=== PATIENT | female | born 1985 | race Hispanic/Latino ===

== ENCOUNTER 2017-08-18 13:44 | Emergency (ER) | payer MEDICAID, OTHER, SELFPAY ==
[2017-08-18 14:17] LABS: #Basophils 0.1 thou/uL (0.0-0.2); #Eosinphils 0.1 thou/uL (0.0-0.7); #Lymphocytes 3.5 thou/uL (1.20-3.40); #Monocytes 0.7 thou/uL (0.11-0.59); #Neutrophils 6.7 thou/uL (1.40-6.50); %Basophils 0.8 % (0.0-1.0); %Eosinophils 0.8 % (0.0-10.0); %Lymphocytes 31.4 % (21.0-51.0); %Monocytes 5.9 % (0.0-10.0); Hematocrit 43.3 % (36.0-47.0); Mean Platelet Volume 8.4 fL (7.4-10.4); Red Blood Cell (RBC) Count 4.73 mill/uL (4.20-5.40)
== END 2017-08-18 15:30 | disposition home or self-care (01) ==
LOC: SCSER 13:44
DX: O20.0 Threatened abortion (principal); Z3A.13 13 weeks gestation of pregnancy
CPT/HCPCS: 84702; 85025; 86900; 86901; 99284

== ENCOUNTER 2018-11-27 08:49 | Outpatient (CLI) | payer OTHER ==
--- NOTE | 2018-11-27 11:46 | ULT ---
OB ULTRASOUND: HISTORY: anatomy. FINDINGS: A single live intrauterine gestation is seen corresponding to an estimated gestational age of 21 week s 1 day and LM at 04/08/2019. The estimated weight measures 405 gm or 14 ounces. measurements are as follows: BPD 4.83 cm, 20 weeks 5 days HC 18.43 cm, 20 weeks 6 days AC 16.61 cm, 21 weeks 5 days FL 3.43 cm, 20 weeks 6 days heart rate measures 149 b.p.m. Placenta is anteriorly located without evidence of placenta pre via. Amniotic fluid is within normal limits. A 3-vessel cord, cord insertion, kidneys, bladder, stomach, 4-chamber heart, lateral ventricles , cerebellum, spine, lips/nose, upper and lower extremities are visualized. No definite abnorm alities are seen. IMPRESSION: Single live intrauterine of 21 weeks 1 day estimated gestational age and estimated date of delivery at 04/08/2019. POS: ASHLEY
== END 2018-11-27 08:50 | disposition home or self-care (01) ==
LOC: BICULT 08:49
PROVIDERS: ATTEND Family Medicine
DX: O09.892 Supervision of other high risk pregnancies, second trimester (principal); Z3A.21 21 weeks gestation of pregnancy
CPT/HCPCS: 76805

== ENCOUNTER 2019-02-03 19:59 | Day surgery (SDC) | payer OTHER ==
[2019-02-03 20:39] VITALS: BMI 32.5
--- NOTE | 2019-02-03 21:35 | PDOC.FPROB ---
FMR OB H&P: HPI - History of Present Illness Chief Complaint: abdominal tightening Indentification: 33 y/o @ 30.3 WGA History of Present Illness: Presents with abdominal "tightening" that started around noon yesterday. It mostly only happens when she is up walking around and her abdomen will stay tight until she is able to lie down. Reports it is a 7/10 with pain, but describes it more as an uncomfortable feeling than painful. She endorses good movement. Denies LOF, vaginal bleeding, vaginal d/c, fevers, dysuria, urinary frequency. Primary Care Physician: Dr. 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: Denies any h/o abnormal pap smears or STI's - Surgical History Sx History: 1 section - Social History Social History: Denies EtOH, drug, or tobacco use - Family History Family History: Denies FMR OB H&P: Medications - Current Home Medications: Medication Instructions Recorded Confirmed Type 21/Iron Fu/Folic Acid 1 tablet PO DAILY 02/03/19 02/03/19 History [ Complete Caplet] Allergies/Adverse Reactions: Allergies Allergy/AdvReac Type Severity Reaction Status Date / Time No Known Allergies Allergy Verified 02/03/19 20:40 FMR OB H&P: ROS - Review of Systems General: denies: fever/chills, recent trauma Eyes: denies: eye pain, vision changes, double vision ENT: denies: nasal congestion, rhinorrhea, sore throat Cardiovascular: denies: chest pain, palpitation, edema Respiratory: denies: cough, shortness of breath Gastrointestinal: reports: abdominal pain. denies: nausea, vomiting, constipation Genitourinary (Female): denies: dysuria, hematuria, polyuria, vaginal discharge , vaginal pain, vaginal bleeding Musculoskeletal: denies: pain, tenderness Neurologic: denies: numbness, weakness Integumentary: denies: itching, rash Endocrine: denies: cold intolerance, heat intolerance Hematologic/Lymphatic: denies: prolonged or excessive bleeding, enlarged lymph nodes Psychological: denies: depression, anxiety FMR OB H&P: Vital Signs - Maternal Vital signs: Temp 98.7, HR 79, BP 101/62, 97% on RA - Heart Tones Baseline: 130 Variability: moderate Acceleration: present Deceleration: absent Category: category 1 [place] contractions every: None FMR OB H&P: Physical Exam - Physical Exam General: NAD, awake, alert and oriented HEENT: EOMI, MMM, conjunctiva clear, no scleral icterus, grossly normal vision, grossly normal hearing Neck: supple, no LAD Heart: RRR, normal S1/S2, no murmurs/rubs/gallops, pulses present, no edema General: CTAB, no respiratory distress, good air movement, no rales/rhonchi, no wheezing Abdomen: soft, gravid, non-tender, bowel sound present Neurological: cranial nerves II through XII intact, no focal deficit Skin: good tugor, capillary refill <2 seconds Lymphatic: no unusual bruising or bleeding, no purpura Psychiatric: intact recent and remote memory, good judgement and insight, normal mood and affect FMR OB H&P: A/P - Problem List (1) contractions Current Visit: Yes Status: Acute Code(s): O47.9 - FALSE LABOR, UNSPECIFIED Assessment and Plan: Will rule out labor -FFN -Cervical length -Cervical check -Monitor heart tones Disposition: Will monitor on L&D until results come back Discussion: Date/Time: 02/03/192132 This H&P was discussed with Dr. Ariza who agrees with the above documentation and plan. Signature: Kelly Jones MD, PGY-2
--- NOTE | 2019-02-03 21:48 | PDOC.EVN ---
Event Note - Event Note Event Note: Faculty H&P Time: [address] warner Here with CC of abd tightening, better with rst HPI: 33 yo H at 30 weeks 3 days, EDC 6/5 here for abd tigtening. No GI or sxs, no recent trauma, no sex in >24 hrs. No VB, no lof. Goofd FMN. She describes the tightening as upper abd, no RUQ pain, no radiation, it is uncomfortable but nonsevere. No fevers at home. Review of Systems: complete ROS completed and as per HPI Past med: none OB HX: SAB 2, CS with last delivery at second stage Allergies: none Surg: CS x 1 MONITORS: NST appropriate for age/reactive; no CTX on toco PHYSICAL: 101/62 79 97% RA NAD And soft NT no evidence ROM or VB clinically Assessment and plan: Patient seen at bedside by me. Stable, NAD I have discussed with her the following tests which we will obtain: FFN TVUS Cervical length I do not suspect true PTL at this time Prob B-H contractions at this time.
[2019-02-03 22:44] LABS: FFN Internal QC Analyzer PASS (PASS); FFN Internal QC Cassette PASS (PASS); Fetal Fibronectin Negative (Negative)
--- NOTE | 2019-02-03 22:59 | PDOC.EVN ---
Event Note - Event Note Event Note: FFN negative, Cervix 0/0/-3 - ultrasound canceled as these two tests were very reassuring for ruling out pre-term labor Will d/c home with f/u with Dr. Fine Discussed labor precautions including regular/painful ctx, LOF, vaginal bleeding , decreased movement
--- NOTE | 2019-02-03 23:00 | PDOC.EVN ---
Event Note - Event Note Event Note: FFN negative. CX sono pending as tech with other patiets. As her exam was cervix closed, with FFN negative, ok to release to home without cx sono as index of suspicion for PTL very low.
== END 2019-02-03 23:05 | disposition home or self-care (01) ==
LOC: SDC 19:59 → EDSTATUS 20:00 → L&D/OP 20:08
PROVIDERS: ATTEND Family Medicine
DX: O47.03 False labor before 37 completed weeks of gestation, third trimester (principal); O34.219 Maternal care for unspecified type scar from previous cesarean delivery; Z3A.30 30 weeks gestation of pregnancy
CPT/HCPCS: 82731; 99283

== ENCOUNTER 2019-04-17 05:51 | Inpatient (IN) | payer MEDICAID, OTHER, SELFPAY ==
[2019-04-17] MEDS ORDERED: Promethazine HCl 25 MG/ML VIAL IM PRN ×3 (05:52→11:11)
[2019-04-17] MEDS ORDERED: Ondansetron PF 4 MG/2 ML Vial IVP PRN ×3 (05:52→11:11)
[2019-04-17] MEDS ORDERED: Lactated Ringer's 1,000 ML IV SCH (06:00)
[2019-04-17] MEDS ORDERED: CEFAZOLIN 2 GM in Premix Bag 1 BAG IVPB SCH (06:00)
[2019-04-17] MEDS ORDERED: Bicitra 30 ML UDCUP PO SCH (06:00)
[2019-04-17 06:24] VITALS: BMI 34.0
[2019-04-17 06:38] LABS: Hemoglobin 12.2 g/dL (12.0-16.0); Mean Corpuscular HGB CONC 33.6 g/dL (32.0-36.0); Mean Corpuscular Hemoglobin 30.8 pg (27.0-31.0); Mean Corpuscular Volume 91.7 fL (78.0-98.0); Mean Platelet Volume 9.3 fL (7.4-10.4); Platelet Count 228 thou/uL (130-400); RBC Distribution Width 11.8 % (11.5-14.5); Red Blood Cell (RBC) Count 3.96 mill/uL (4.20-5.40); White Blood Cell (WBC) Count 8.7 thou/uL (4.8-10.8)
[2019-04-17] MEDS ORDERED: MORPHINE 5 MG/10 ML PF VIAL ONE (07:11)
[2019-04-17] MEDS ORDERED: ePHEDrine/0.9% NaCl/PF SYRINGE 50 mg/10 ml ONE (07:12)
[2019-04-17] MEDS ORDERED: Oxytocin 10 UNITS/ML VIAL ONE ×2 (07:12→08:14)
[2019-04-17] MEDS ORDERED: Dexamethasone 4 mg/ml Vial ONE (07:12)
[2019-04-17] MEDS ORDERED: Ondansetron PF 4 MG/2 ML Vial ONE ×2 (07:12→12:55)
[2019-04-17 07:15] LABS: Syphilis Antibody Nonreactive (Nonreactive); Syphilis Antibody Index 0.03 S/CO (<1.00 Non-Reactive)
[2019-04-17 07:21] LABS: HBSAg Index 0.31 S/CO (0-0.99); Hep B Surf Ag Non-Reactive S/CO (NonReactive)
[2019-04-17] MEDS ORDERED: Ketorolac Tromethamine 30 MG/ML VIAL IVP PRN (07:47)
[2019-04-17] MEDS ORDERED: Ondansetron HCl/PF 4 MG/2 ML Vial IVP PRN (07:47)
[2019-04-17] MEDS ORDERED: Promethazine HCl 25 MG SUPP PR PRN (07:47)
[2019-04-17] MEDS ORDERED: HYDROmorphone 2 MG/ML VIAL SLOW IVP PRN (07:47)
[2019-04-17] MEDS ORDERED: Naloxone HCl 0.4 mg/ml Vial IVP PRN ×2 (07:47)
[2019-04-17] MEDS ORDERED: diphenhydrAMINE 50 MG/ML VIAL IVP PRN (07:47)
[2019-04-17] MEDS ORDERED: L&D-Morphine 4 MG/ML VIAL SLOW IVP PRN (07:47)
[2019-04-17] MEDS ORDERED: Meperidine HCl/PF 25 MG/ML VIAL SLOW IVP PRN (07:47)
[2019-04-17] MEDS ORDERED: Naloxone HCl 0.4 mg/ml Vial IV PRN (07:47)
[2019-04-17] MEDS ORDERED: Methylergonovine 0.2 MG/ML VIAL ONE (07:56)
[2019-04-17] MEDS ORDERED: Ketorolac Tromethamine 30 MG/ML VIAL IVP SCH (08:00)
[2019-04-17] MEDS ORDERED: Communication Order-Pharmacy FS SCH (08:00)
--- NOTE | 2019-04-17 08:36 | PDOC.OPDEL ---
OB Operative/Delivery Note Delivery Dr/Surgeon: Dr. Fine Assist: Dr. Jones Pre-Delivery Diagnosis: scheduled section Procedure/Post Delivery Dx: repeat low transverse CS Weeks gestation: 40 (40w6d) Anesthesia: spinal - Findings A Sex: male - Additional Findings/Plan Placenta delivered: manual removal findings: low transverse hysterotomy without extension Estimated blood loss: 600mL Compilations/Other Findings: Preoperative Diagnosis: 1)Term intrauterine 2)Previous Postoperative Diagnosis: 1)Term intrauterine , delivered 2)Previous Anesthesia: spinal Indications: The patient is a 34 year old female at 40.6 weeks gestation who presents for a repeat scheduled . Procedure in Detail: After risks, benefits, and alternatives were explained to the patient, she gave informed consent. Pre-operative antibiotics included Cefazolin 2 gram IV. The patient was taken to the operating room and spinal anesthesia was initiated. She was placed in the supine position with a left tilt and prepped and draped in usual sterile fashion. A Pfannenstiel incision was made with a scalpel and carried down to the level of the fascia which was sharply nicked. The fascial cut was extended bilaterally with Interiano scissors. The inferior and superior edges of the cut fascial edges were elevated with Santhosh clamps and the underlying rectus muscles were sharply and bluntly dissected free. The recti were divided digitally and retracted manually. The peritoneum was entered bluntly and retracted manually. Uterine adhesions were sharply dissected free with Metzembaum scissors. Bladder blade was placed. A low transverse score was made with the scalpel and the uterus was entered in the midline bluntly. Light meconium stained fluid was seen. The hysterotomy was extended manually. The infant was noted to be vertex and was easily delivered by fundal pressure. Nuchal cord reduced at hysterotomy. Mouth and nares were bulb suctioned. Cord clamped and cut and grossly normal male infant was handed to waiting nurse. Cord blood was obtained. Placenta was manually extracted, found to be intact with 3 vessel cord and discarded. The uterus was externalized and the endometrium was curetted with a dry lap. The bladder blade was replaced and the uterus was closed with a running locking 0-Vicryl followed by a figure of eight suture with 0-Vicryl. Following this hemostasis was noted. The abdomen was irrigated with saline and suctioned free of clots. Seprafilm was placed over anterior aspect of uterus. The uterus was internalized and the hysterotomy was again noted to be hemostatic. The peritoneum was closed with running, non-locking 3-0 vicryl suture. The rectus muscles were found to have a few bleeders that were cauterized with the bovie. The fascia was closed with a running non-locking 0-PDS suture. The subcutaneous tissue was irrigated and there were no bleeders. The subcutaneous tissue was closed with interrupted 3-0 Vicryl. The skin was approximated with miles and a pressure dressing was placed. All counts were correct. The patient tolerated the procedure well and was taken to the recovery room in stable condition. Time of Delivery: 0751 on 04/17/19 Estimated Blood Loss: 600 ml Complications: None Specimens: Cord blood sent to lab for blood type Findings: Grossly normal vigorous male infant. Grossly normal placenta with 3 vessel cord discarded. Drains: Charles to gravity draining clear urine Post delivery plan: routine recovery
[2019-04-17] MEDS ORDERED: Meperidine HCl/PF 25 MG/ML VIAL ONE (10:34)
[2019-04-17] MEDS ORDERED: Bisacodyl 10 MG SUPP PR PRN (11:11)
[2019-04-17] MEDS ORDERED: NS / Oxytocin 40 units/1000ml 1,000 ML IV SCH (11:11)
[2019-04-17] MEDS ORDERED: diphenhydrAMINE 25 MG CAP PO PRN (11:11)
[2019-04-17] MEDS ORDERED: ePHEDrine 50 MG/ML VIAL ONE (12:55)
[2019-04-17] MEDS ORDERED: Dexamethasone 20 MG/5 ML VIAL ONE (12:55)
[2019-04-17] MEDS: Ibuprofen 800 MG TAB PO SCH (16:44)
[2019-04-17] MEDS: Ketorolac Tromethamine 30 MG/ML VIAL IVP SCH ×2 (16:46→20:26)
[2019-04-17] MEDS: Ferrous Sulfate 325 MG TAB PO SCH (16:49)
[2019-04-17] MEDS ORDERED: Meperidine HCl/PF 25 MG/ML VIAL IM PRN (21:00)
[2019-04-18] MEDS: HYDROcodone/Acetaminophen 5/325 mg Tablet PO PRN ×4 (00:37→23:26)
[2019-04-18] MEDS: Docusate Calcium (SURFAK) 240 MG CAP PO SCH ×3 (01:18→21:23)
[2019-04-18] MEDS: Ibuprofen 800 MG TAB PO SCH ×3 (01:18→18:30)
[2019-04-18] MEDS ORDERED: Sodium Chloride 0.9% 10 ML ONE (03:19)
[2019-04-18] MEDS: Ketorolac Tromethamine 30 MG/ML VIAL IVP SCH (03:23)
[2019-04-18] MEDS: Ferrous Sulfate 325 MG TAB PO SCH ×2 (10:12→17:51)
[2019-04-18] MEDS: Prenatal Vitamin 1 TAB PO SCH (10:13)
[2019-04-18] MEDS: Simethicone Chewable 80 MG TAB PO PRN ×2 (10:13→21:23)
[2019-04-18 10:28] LABS: Hemoglobin 10.7 g/dL (12.0-16.0); Mean Corpuscular HGB CONC 33.5 g/dL (32.0-36.0); Mean Corpuscular Hemoglobin 30.9 pg (27.0-31.0); Mean Corpuscular Volume 92.1 fL (78.0-98.0); Platelet Count 209 thou/uL (130-400); RBC Distribution Width 11.9 % (11.5-14.5); Red Blood Cell (RBC) Count 3.47 mill/uL (4.20-5.40); White Blood Cell (WBC) Count 11.5 thou/uL (4.8-10.8)
[2019-04-19] MEDS: Ibuprofen 800 MG TAB PO SCH ×3 (04:14→20:12)
[2019-04-19] MEDS: HYDROcodone/Acetaminophen 5/325 mg Tablet PO PRN ×3 (07:15→23:12)
[2019-04-19] MEDS: Prenatal Vitamin 1 TAB PO SCH (08:32)
[2019-04-19] MEDS: Docusate Calcium (SURFAK) 240 MG CAP PO SCH ×2 (08:32→20:12)
[2019-04-19] MEDS: Simethicone Chewable 80 MG TAB PO PRN ×2 (11:33→18:42)
[2019-04-19] MEDS: Ferrous Sulfate 325 MG TAB PO SCH ×2 (12:06→16:40)
[2019-04-19] MEDS: Lanolin Ointment 7 GM TUBE TOP PRN (20:12)
[2019-04-20] MEDS: Ibuprofen 800 MG TAB PO SCH ×3 (04:47→20:48)
[2019-04-20] MEDS: HYDROcodone/Acetaminophen 5/325 mg Tablet PO PRN ×5 (04:47→21:49)
[2019-04-20] MEDS: Docusate Calcium (SURFAK) 240 MG CAP PO SCH ×2 (08:28→20:49)
[2019-04-20] MEDS: Prenatal Vitamin 1 TAB PO SCH (08:28)
[2019-04-20] MEDS: Ferrous Sulfate 325 MG TAB PO SCH ×2 (10:15→17:41)
[2019-04-20] MEDS: Simethicone Chewable 80 MG TAB PO PRN (14:09)
[2019-04-20] MEDS: Lanolin Ointment 7 GM TUBE TOP PRN (23:38)
[2019-04-21] MEDS: HYDROcodone/Acetaminophen 5/325 mg Tablet PO PRN ×3 (01:51→13:39)
[2019-04-21] MEDS: Ibuprofen 800 MG TAB PO SCH ×4 (05:08→13:39)
[2019-04-21] MEDS: Docusate Calcium (SURFAK) 240 MG CAP PO SCH (07:33)
[2019-04-21] MEDS: Prenatal Vitamin 1 TAB PO SCH (07:33)
[2019-04-21] MEDS: Simethicone Chewable 80 MG TAB PO PRN (07:34)
[2019-04-21] MEDS: Ferrous Sulfate 325 MG TAB PO SCH (07:35)
[2019-04-21 07:41] VITALS: BP 118/83; TEMP 98.2
== END 2019-04-21 15:38 | disposition home or self-care (01) | DRG 788 ==
LOC: L&D 05:51 → 3SW 11:46
PROVIDERS: ADMIT Family Medicine; ATTEND Family Medicine
PROC: 10D00Z1 Extraction of Products of Conception, Low, Open Approach (ICD-10-PCS; principal; 2019-04-17)
PROC: 3E0P05Z Introduction of Adhesion Barrier into Female Reproductive, Open Approach (ICD-10-PCS; 2019-04-17)
DX: O34.211 Maternal care for low transverse scar from previous cesarean delivery (principal); O48.0 Post-term pregnancy; Z3A.40 40 weeks gestation of pregnancy; Z37.0 Single live birth; O77.0 Labor and delivery complicated by meconium in amniotic fluid; O69.81X0 Labor and delivery complicated by cord around neck, without compression, not applicable or unspecified
CPT/HCPCS: 36415; 51702; 85027; 86780; 86850; 86900; 86901; 87340; J0690; J1100; J1200; J1885; J2175; J2210; J2270; J2405; J2590

== ENCOUNTER 2020-03-16 04:23 | Emergency (ER) | payer MEDICAID, OTHER ==
[2020-03-16 05:31] LABS: Bilirubin Negative (Negative); Blood, Urine 2+ (Negative); Clarity Turbid (Clear); Glucose, Urine (Dipstick) Normal (Negative); Leukocyte Negative Leu/uL (Negative); Nitrite 1+ (Negative); Protein, Urine (Dipstick) 10 mg/dL (Neg-Trace); Urobilinogen Normal mg/dL (Less than 2)
[2020-03-16 05:33] LABS: Bacteria/HPF 1+ HPF (None Seen)
[2020-03-16 06:29] LABS: #Eosinphils 0.2 thou/uL (0.0-0.7); #Lymphocytes 3.2 thou/uL (1.20-3.40); #Monocytes 0.6 thou/uL (0.11-0.59); #Neutrophils 4.6 thou/uL (1.40-6.50); %Basophils 0.5 % (0.0-1.0); %Eosinophils 2.8 % (0.0-10.0); %Lymphocytes 37.1 % (21.0-51.0); %Monocytes 7.1 % (0.0-10.0); %Neutrophils 52.6 % (42.0-75.0); Hemoglobin 13.7 g/dL (12.0-16.0); Mean Corpuscular HGB CONC 33.8 g/dL (32.0-36.0); Mean Corpuscular Hemoglobin 31.9 pg (27.0-31.0); Mean Corpuscular Volume 94.5 fL (78.0-98.0); Mean Platelet Volume 8.7 fL (7.4-10.4); Platelet Count 219 thou/uL (130-400); RBC Distribution Width 11.7 % (11.5-14.5); White Blood Cell (WBC) Count 8.7 thou/uL (4.8-10.8)
== END 2020-03-16 06:48 | disposition home or self-care (01) ==
LOC: ERS 04:23
DX: O20.9 Hemorrhage in early pregnancy, unspecified (principal); O23.41 Unspecified infection of urinary tract in pregnancy, first trimester; Z3A.13 13 weeks gestation of pregnancy
CPT/HCPCS: 81003; 81015; 85025; 86900; 86901; 99284

== ENCOUNTER 2020-05-29 11:42 | Emergency (ER) | payer OTHER ==
[2020-05-29] MEDS ORDERED: Lorazepam 2 MG/ML VIAL ONE (13:09)
[2020-05-30 11:46] LABS: SARS-CoV-2 MS2 Positive; SARS-CoV-2 N Gene Negative; SARS-CoV-2 S Gene Negative; SARS-CoV-2 by NAA Not Detected (NotDetected); SARS-CoV-2 orf1ab Negative
== END 2020-05-29 13:33 | disposition home or self-care (01) ==
LOC: ERS 11:42
DX: F41.9 Anxiety disorder, unspecified (principal); R00.2 Palpitations; Z20.828 Contact with and (suspected) exposure to other viral communicable diseases; Z79.899 Other long term (current) drug therapy
CPT/HCPCS: 87635; 93005; 96372; J2060; U0003

== ENCOUNTER 2021-01-30 22:40 | Emergency (ER) | payer OTHER ==
[2021-01-30 23:01] LABS: #Basophils 0.1 thou/uL (0.0-0.2); #Eosinphils 0.2 thou/uL (0.0-0.7); #Lymphocytes 2.7 thou/uL (1.20-3.40); #Monocytes 0.7 thou/uL (0.11-0.59); #Neutrophils 8.6 thou/uL (1.40-6.50); %Basophils 0.5 % (0.0-1.0); %Eosinophils 1.6 % (0.0-10.0); %Lymphocytes 22.1 % (21.0-51.0); %Monocytes 5.5 % (0.0-10.0); %Neutrophils 70.3 % (42.0-75.0); Hemoglobin 12.2 g/dL (12.0-16.0); Mean Corpuscular HGB CONC 33.7 g/dL (32.0-36.0); Mean Corpuscular Hemoglobin 31.6 pg (27.0-31.0); Mean Corpuscular Volume 93.9 fL (78.0-98.0); Mean Platelet Volume 8.1 fL (7.4-10.4); Platelet Count 259 thou/uL (130-400); RBC Distribution Width 11.5 % (11.5-14.5); Red Blood Cell (RBC) Count 3.85 mill/uL (4.20-5.40); White Blood Cell (WBC) Count 12.3 thou/uL (4.8-10.8)
[2021-01-30 23:20] LABS: ALT (SGPT) 12 U/L (8-55); AST (SGOT) 36 U/L (5-34); Albumin 3.4 g/dL (3.5-5.0); Alkaline Phosphatase 128 U/L (40-110); Anion Gap 13 mmol/L (10-20); BUN (Urea Nitrogen) 8 mg/dL (7.0-18.7); Bilirubin, Total 0.3 mg/dL (0.2-1.2); Calc. Creatinine Clearance 0 mL/min (70-130); Calcium 9.4 mg/dL (7.8-10.44); Carbon Dioxide 23 mmol/L (22-29); Chloride 104 mmol/L (98-107); Globulin 3.2 g/dL (2.4-3.5); Glucose 96 mg/dL (70-105); Potassium 3.8 mmol/L (3.5-5.1); Protein, Total 6.6 g/dL (6.0-8.3); Sodium 136 mmol/L (136-145)
[2021-01-30] MEDS ORDERED: Acetaminophen 500 MG TAB ONE (23:31)
[2021-01-30] MEDS ORDERED: Mag-Al 1200 mg/1200 mg/30 ML UDCUP ONE (23:31)
== END 2021-01-30 23:28 | disposition home or self-care (01) ==
LOC: ERS 22:40
DX: R10.13 Epigastric pain (principal)
CPT/HCPCS: 36415; 80053; 85025; 99284

== ENCOUNTER 2021-02-24 21:44 | Emergency (ER) | payer OTHER ==
[2021-02-24 22:43] LABS: #Monocytes 1.2 thou/uL (0.11-0.59); #Neutrophils 15.6 thou/uL (1.40-6.50); %Eosinophils 0.2 % (0.0-10.0); %Lymphocytes 5.5 % (21.0-51.0); %Monocytes 6.6 % (0.0-10.0); %Neutrophils 87.7 % (42.0-75.0); Hemoglobin 12.4 g/dL (12.0-16.0); Mean Corpuscular HGB CONC 33.8 g/dL (32.0-36.0); Mean Corpuscular Hemoglobin 31.1 pg (27.0-31.0); Mean Corpuscular Volume 92.1 fL (78.0-98.0); Mean Platelet Volume 8.1 fL (7.4-10.4); Platelet Count 270 thou/uL (130-400); RBC Distribution Width 11.5 % (11.5-14.5); Red Blood Cell (RBC) Count 3.99 mill/uL (4.20-5.40); White Blood Cell (WBC) Count 17.8 thou/uL (4.8-10.8)
[2021-02-24] MEDS ORDERED: Acetaminophen 500 MG TAB ONE (22:50)
[2021-02-24 22:51] LABS: Bacteria/HPF 4+ HPF (None Seen); Bilirubin Negative (Negative); Blood, Urine Trace (Negative); Clarity Turbid (Clear); Glucose, Urine (Dipstick) Normal (Negative); Ketone, Urine Negative (Negative); Leukocyte 75 Leu/uL (Negative); Nitrite 2+ (Negative); Protein, Urine (Dipstick) 30 mg/dL (Neg-Trace); Renal Epithelial 0-3 HPF (None Seen); Specific Gravity, Urine 1.022 (1.002-1.036); Urobilinogen Normal mg/dL (Less than 2); WBC/HPF 21-50 HPF (0-3); pH, Urine 7.5 (5.0-9.0)
[2021-02-24 23:00] LABS: ALT (SGPT) 17 U/L (8-55); AST (SGOT) 18 U/L (5-34); Albumin 3.4 g/dL (3.5-5.0); Alkaline Phosphatase 178 U/L (40-110); Anion Gap 14 mmol/L (10-20); BUN (Urea Nitrogen) 7 mg/dL (7.0-18.7); Bilirubin, Total 0.5 mg/dL (0.2-1.2); Calc. Creatinine Clearance 0 mL/min (70-130); Calcium 8.6 mg/dL (7.8-10.44); Carbon Dioxide 20 mmol/L (22-29); Chloride 104 mmol/L (98-107); Globulin 3.6 g/dL (2.4-3.5); Glucose 130 mg/dL (70-105); Potassium 3.9 mmol/L (3.5-5.1); Sodium 134 mmol/L (136-145)
[2021-02-24] MEDS ORDERED: cefTRIAXone\\ROCEPHIN 2 GM VIAL ONE (23:31)
[2021-02-24] MEDS ORDERED: Sodium Chloride 0.9% 100 ML ONE (23:31)
[2021-02-24] MEDS ORDERED: Gentamicin Sulfate 120 MG in Premix Bag 1 BAG IVPB SCH (23:45)
[2021-02-25 00:08] LABS: Bacteria/HPF 4+ HPF (None Seen); Bilirubin Negative (Negative); Blood, Urine 1+ (Negative); Clarity Clear (Clear); Glucose, Urine (Dipstick) Normal (Negative); Ketone, Urine Negative (Negative); Leukocyte 25 Leu/uL (Negative); Nitrite 2+ (Negative); Protein, Urine (Dipstick) 10 mg/dL (Neg-Trace); Specific Gravity, Urine 1.012 (1.002-1.036); Squamous Epithelial 0-3 HPF (0-3); Urobilinogen Normal mg/dL (Less than 2); pH, Urine 6.5 (5.0-9.0)
== END 2021-02-25 01:02 | disposition short-term general hospital (02) ==
LOC: ERS 21:44
DX: O23.03 Infections of kidney in pregnancy, third trimester (principal); Z3A.29 29 weeks gestation of pregnancy
CPT/HCPCS: 36415; 51701; 80053; 81003; 81015; 83605; 85025; 87040; 87077; 87086; 87186; 93005; 96365; 96367; J0696; J1580; J3490